=== PATIENT | male | born 1980 | race Two or more races ===

== ENCOUNTER 2018-05-31 08:41 | Emergency (ER) | payer OTHER ==
[2018-05-31 08:47] VITALS: BP 111/77; PULSE 67; TEMP 98.4; BMI 27.8
--- NOTE | 2018-05-31 08:55 | PDOC ---
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 Denies other injuries. Last tetanus was three months ago. Past History - Past Medical History Allergies/Adverse Reactions: Allergies Allergy/AdvReac Type Severity Reaction Status Date / Time No Known Allergies Allergy Verified 05/31/18 08:42 Home Medications: Ambulatory Orders Atorvastatin Ca [Lipitor] 20 mg PO HS 05/31/18 Metformin HCl [Glucophage] 1,000 mg PO DAILY 05/31/18 COPD: No Diabetes: Yes Hypercholesterolemia: Yes - Suicide/Smoking/Psychosocial Hx Smoking History: Never smoked Hx Alcohol Use: Yes (OCASIONAL) Drug/Substance Use Hx: No Review of Systems - Review of Systems Able to Perform ROS?: Yes Is the patient limited Turkmen proficient: No Integumentary: Yes: Symptoms Reported, Other (wound) *Physical Exam - Vital Signs Last Vital Signs Temp Pulse Resp BP Pulse Ox 98.4 F 67 16 111/77 98 05/31/18 08:41 05/31/18 08:41 05/31/18 08:41 05/31/18 08:41 05/31/18 08:41 - Physical Exam General Appearance: Yes: Nourished, Appropriately Dressed. No: Apparent Distress, Disheveled, Mild Distress, Moderate Distress, Severe Distress, Alcohol on Breath, Intoxicated, Cachetic, Obese, Thin, Other Integumentary: positive: Normal Color, Dry, Other (+ 1 cm abrasion to the R forearm. No open wound. No other injuries.) Moderate Sedation - Procedure Monitoring Vital Signs: Procedure Monitoring Vital Signs Temperature 98.4 F 05/31/18 08:41 Pulse Rate 67 05/31/18 08:41 Respiratory Rate 16 05/31/18 08:41 Blood Pressure 111/77 05/31/18 08:41 O2 Sat by Pulse Oximetry (%) 98 05/31/18 08:41 Medical Decision Making - Medical Decision Making 05/31/18 09:02 Pt presents to the ED with small, linear abrasion to the skin after being bitten by a child. No puncture wound. Given that there is minimal disturbance to the skin, I feel that the patient is at extremely low risk for infection and will not start antibiotics at this time. THe patient has been advised to return immediately to the ED for signs of infection. *DC/Admit/Observation/Transfer Diagnosis at time of Disposition: Abrasion Human bite Qualifiers: Encounter type: initial encounter Qualified Code(s): W50.3XXA - Accidental bite by another person, initial encounter - Discharge Dispostion Disposition: HOME Condition at time of disposition: Good Decision to Admit order: No - Referrals - Patient Instructions Printed Discharge Instructions: DI for a Human Bite Additional Instructions: you were seen in the ED for a human bite. the wound is only on the outermost part of your skin, so it is unlikely to get infected. Clean the wound 4 times a day with soap and water. Return immediately to the ED for fever, redness or swelling around the wound. you should use ice and motrin at home for the pain. - Post Discharge Activity Forms/Work/School Notes: Back to Work
== END 2018-05-31 09:15 | disposition home or self-care (01) ==
LOC: FER 08:41
DX: S50.811A Abrasion of right forearm, initial encounter (principal); W50.3XXA Accidental bite by another person, initial encounter; Y93.89 Activity, other specified; Y92.89 Other specified places as the place of occurrence of the external cause; E11.9 Type 2 diabetes mellitus without complications; E78.00 Pure hypercholesterolemia, unspecified
CPT/HCPCS: 99281-25